=== PATIENT | female | born 1955 | race Caucasian/White ===

== ENCOUNTER 2017-02-11 22:57 | Emergency (ER) | payer MEDICAID ==
[2017-02-11 23:21] VITALS: BP 154/84
--- NOTE | 2017-02-11 23:39 | EDM.PDOC ---
ED HPI GENERAL MEDICAL PROBLEM - General Chief Complaint: Lower Extremity Injury/Pain Stated Complaint: POSSIBLE BROKEN LEG Time Seen by Provider: 02/11/17 23:27 Source of Information: Reports: Patient History Limitations: Reports: No Limitations - History of Present Illness INITIAL COMMENTS - FREE TEXT/NARRATIVE: This 61 yo female patient reports to the ED with pain in her left lower extremity. The patient [place] and felt a "pop". The patient has been icing and elevating her leg since the incident. 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 [No Known Home Meds] 02/11/17 [History] Past Medical History - Past Health History Medical/Surgical History: Denies Medical/Surgical History Social & Family History - Tobacco Use Smoking Status *Q: Unknown Ever Smoked Second Hand Smoke Exposure: No - Caffeine Use Caffeine Use: Reports: Coffee, Soda Caffeine Use Comment: occassional - Recreational Drug Use Recreational Drug Use: No Review of Systems - Review of Systems Review Of Systems: ROS reveals no pertinent complaints other than HPI. ED EXAM, GENERAL - Physical Exam Exam: See Below Exam Limited By: No Limitations General Appearance: Alert, WD/WN, Moderate Distress Eye Exam: Bilateral Eye: EOMI, Normal Inspection, PERRL Ears: Normal External Exam, Normal Canal, Hearing Grossly Normal, Normal TMs Nose: Normal Inspection, Normal Mucosa, No Blood Throat/Mouth: Normal Inspection, Normal Lips, Normal Teeth, Normal Gums, Normal Oropharynx, Normal Voice, No Airway Compromise Head: Atraumatic, Normocephalic Neck: Normal Inspection, Supple, Non-Tender, Full Range of Motion Respiratory/Chest: No Respiratory Distress, Lungs Clear, Normal Breath Sounds, No Accessory Muscle Use, Chest Non-Tender Cardiovascular: Normal Peripheral Pulses, Regular Rate, Rhythm, No Edema, No Gallop, No JVD, No Murmur, No Rub (Female) Exam: Deferred Rectal (Female) Exam: Deferred Extremities: Leg Pain (left lateral ankle and foot pain), Limited Range of Motion Neurological: Alert, Oriented, CN II-XII Intact, Normal Cognition, Normal Gait, Normal Reflexes, No Motor/Sensory Deficits Psychiatric: Normal Affect, Normal Mood Skin Exam: Warm, Dry, Intact, Normal Color, No Rash Lymphatic: No Adenopathy Course - Vital Signs Last Recorded V/S: Last Vital Signs Temp 36.3 C 02/11/17 23:20 Pulse 67 02/11/17 23:20 Resp 20 02/11/17 23:20 BP 154/84 H 02/11/17 23:20 Pulse Ox 99 02/11/17 23:20 - Orders/Labs/Meds Orders: Active Orders 24 hr Category Date Time Status Ankle 2V Lt [CR] Urgent Exams 02/11/17 23:18 Ordered Tibia Fibula Lt [CR] Urgent Exams 02/11/17 23:17 Ordered Departure - Departure Time of Disposition: 00:03 Disposition: Home, Self-Care 01 Condition: fair Clinical Impression: Fracture of fibula, left, closed Qualifiers: Encounter type: initial encounter Fibula location: distal Fracture morphology: other fracture Qualified Code(s): S82.832A - Other fracture of upper and lower end of left fibula, initial encounter for closed fracture Fx lateral malleolus-closed Qualifiers: Encounter type: initial encounter Fracture alignment: nondisplaced Laterality: left Qualified Code(s): S82.65XA - Nondisplaced fracture of lateral malleolus of left fibula, initial encounter for closed fracture - Discharge Information Instructions: Crutch Use, [id number], Fibular Ankle Fracture Treated With or Without Immobilization, Adult Forms: ED Department Discharge Care Plan Goals: The patient was advised of the examination and x-ray result during the visit. The patient was placed in a immobilization boot and given crutches for support. The patient should remain non-weight bearing until follow-up with an mattress specialist. The patient was encouraged to rest, ice and elevate the left leg. The patient was discharged with [place] (5/325) #2 to take 1 by mouth every 6 hours as needed for pain and a script for [place] (5/325) #10 to take 1 by mouth every 6 hours as needed for pain. The patient should follow-up with an mattress specialist next week for continued evaluation and further management. If the patient has any additional symptoms or concerns, the patient should see her primary care facility or return to the emergency department. - My Orders Last 24 Hours: My Active Orders 02/11/17 23:17 Tibia Fibula Lt [CR] Urgent 02/11/17 23:18 Ankle 2V Lt [CR] Urgent - Assessment/Plan Last 24 Hours: My Active Orders 02/11/17 23:17 Tibia Fibula Lt [CR] Urgent 02/11/17 23:18 Ankle 2V Lt [CR] Urgent
[2017-02-12] MEDS ORDERED: Acetaminophen/HYDROcodone 325-5 MG Tab PO ONE (00:04)
[2017-02-12] MEDS ORDERED: Acetaminophen/HYDROcodone 325-5 MG Tab ONE (00:04)
== END 2017-02-12 00:28 | disposition home or self-care (01) ==
LOC: DL.ED 22:57
DX: S82.65XA Nondisplaced fracture of lateral malleolus of left fibula, initial encounter for closed fracture (principal); W18.40XA Slipping, tripping and stumbling without falling, unspecified, initial encounter
CPT/HCPCS: 73590; 73600; 99283; A9270